=== PATIENT | male | born 1940 | race Caucasian/White ===

== ENCOUNTER 2017-08-30 06:49 | Day surgery (SDC) | payer MEDICAID, OTHER ==
[~2017-08-30] VITALS: Ht 177.8 cm; Wt 92.5 kg
[2017-08-30] MEDS ORDERED: LIDOCAINE 2% 100 MG/5 ML UJET TP ONE (07:13)
[2017-08-30] MEDS ORDERED: KETOROLAC 30 MG/ML VIAL ONE (08:25)
== END 2017-08-30 09:38 | disposition home or self-care (01) ==
LOC: MOR 06:49 → MMU 06:49 → MOR 09:38
PROVIDERS: ATTEND Internal Medicine Gastroenterology
DX: Z12.11 Encounter for screening for malignant neoplasm of colon (principal); K64.8 Other hemorrhoids; K57.30 Diverticulosis of large intestine without perforation or abscess without bleeding; E11.9 Type 2 diabetes mellitus without complications; E78.00 Pure hypercholesterolemia, unspecified; Z98.890 Other specified postprocedural states; Z79.899 Other long term (current) drug therapy
CPT/HCPCS: 45378; 82948; J1885